=== PATIENT | male | born 1980 | race Caucasian/White ===

== ENCOUNTER → 2018-04-18 | Outpatient (CLI) | payer BC ==
[2018-04-18 16:29] LABS: HCT 45.7 % (39.0-53.0); MCHC 34.9 g/dL (31.0-37.0); MCV 91.7 fL (80.0-100.0); Platelet Count 243 k/uL (150-450); RBC 4.98 m/uL (4.30-5.90); WBC 12.7 k/uL (3.8-10.6)
== END ==
LOC: LABPAT 15:14
PROVIDERS: ATTEND Anesthesiology
DX: Z01.812 Encounter for preprocedural laboratory examination (principal)
CPT/HCPCS: 36415; 85027

== ENCOUNTER 2018-04-19 07:50 | Day surgery (SDC) | payer BC ==
[2018-04-14 14:19] VITALS: BMI 24.2
[~2018-04-19 07:50] MED LIST: DEXAMETHASONE SOD PHOSPHATE 10 MG/ML 1 ML VIAL IV ONE; HEPARIN SODIUM,PORCINE 5,000 UNIT/ML 1 ML VIAL SQ ONE; MIDAZOLAM (PF) 2 MG/2 ML VIAL IV PRN; ONDANSETRON 4 MG/2 ML VIAL IVP ONE; ceFAZolin IN SWFI 2 GM/20 ML SYRINGE IVP ONE; fentaNYL (PF) 50 MCG/ML 2 ML AMP IV PRN
[2018-04-19] MEDS: LACTATED RINGERS 1,000 ML IV SCH (08:49)
[2018-04-19] MEDS: LIDOCAINE 1% 20 ML VIAL (10MG/ML) FOR IV START INTRADERMA PRN ×2 (08:49→08:50)
[2018-04-19] MEDS ORDERED: MIDAZOLAM 2 MG/2 ML VIAL IV ONE (09:07)
[2018-04-19] MEDS ORDERED: fentaNYL (PF) 50 MCG/ML 2 ML AMP IV ONE ×2 (09:07→09:17)
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
--- NOTE | 2018-04-19 09:31 | P.ONQ ---
Anesthesiology Proc Note - PNB - Peripheral Nerve Block Performed Left Transversus Abdominis Single Procedure Start Time: 09:05 Indication: Acute Post-Operative Pain Specifically requested for management of pain by DrAbbey: Guanako Goins Sedation Type: Sedate with meaningful contact maintained Preparation: Sterile Prep Position: Supine Catheter: None Needle Types: Other (see comment) (Pajun) Needle Size: 100mm (4") Needle Gauge: 21 Technique: Ultrasound Injectate: Other (see comment) (rop 0.25% lido 0.5% decadron 4mg 30cc) Adjunct: Epinephrine (see comment for dilution ratio) (1:200,000) Blood Aspirated: No Pain Paresthesia on Injection Noted: No Resistance on Injection: Normal Events: Uneventful and Well Tolerated
[2018-04-19] MEDS ORDERED: BUPIVACAINE-EPI 0.5%-1:200,000 10 ML VIAL SQ ONE ×2 (09:33→09:55)
[2018-04-19] MEDS ORDERED: LIDOCAINE 1% INJ 10MG/ML (20 ML MDV) ONE (09:35)
[2018-04-19] MEDS ORDERED: LIDOCAINE 0.5% (PF) 5 MG/ML (50 ML SDV) ONE (09:35)
[2018-04-19] MEDS ORDERED: DEXAMETHASONE SOD PHOSPHATE 4 MG/ML 1 ML VIAL ONE (09:35)
[2018-04-19] MEDS ORDERED: NEOSTIGMINE 1 MG/ML 10 ML VIAL ONE (09:35)
[2018-04-19] MEDS ORDERED: SUCCINYLCHOLINE CHLORIDE 100 MG/5 ML SYR IV ONE (09:35)
[2018-04-19] MEDS ORDERED: GLYCOPYRROLATE 0.2 MG/ML 2 ML VIAL ONE (09:35)
[2018-04-19] MEDS ORDERED: MIDAZOLAM 2 MG/2 ML VIAL ONE (09:35)
[2018-04-19] MEDS ORDERED: ROCURONIUM BROMIDE 10 MG/ML 10 ML VIAL IV ONE (09:35)
[2018-04-19] MEDS ORDERED: KETOROLAC 30 MG/ML 1 ML VIAL ONE (09:35)
[2018-04-19] MEDS ORDERED: PROPOFOL 10 MG/ML 20 ML VIAL IV ONE (09:35)
[2018-04-19] MEDS ORDERED: fentaNYL (PF) 50 MCG/ML 2 ML AMP ONE (09:35)
[2018-04-19] MEDS ORDERED: ROPIVACAINE 5 MG/ML 30 ML VIAL ONE (09:35)
[2018-04-19 10:32] VITALS: TEMP 98
--- NOTE | 2018-04-19 10:35 | P.OP ---
Date of Procedure: 04/19/18 Preoperative Diagnosis: Left inguinal hernia Postoperative Diagnosis: Left inguinal hernia Procedure(s) Performed: Laparoscopic robotic-assisted repair of left inguinal hernia Excision of cord lipoma Anesthesia: LEONOR Surgeon: Guanako Goins Estimated Blood Loss (ml): 5 Pathology: other (Left cord lipoma) Condition: stable Disposition: PACU Description of Procedure: The patient's placed on the operating table in the supine position. The patient received general anesthesia. The patient's abdomen was prepped and draped in usual sterile fashion. The skin was anesthetized 1% local Xylocaine at the incision sites. Using an 11 blade a skin incision was made at the umbilicus. The fascia was grasped with a Anthony and then the peritoneal cavity was entered with the Veress needle. Position of the Veress needle was confirmed with a positive drop test. After adequate insufflation a 5 mm trocar was placed into the peritoneal cavity. The Laparoscope was placed the peritoneal cavity. And a robotic 8 mm trocar was placed in the right lateral position and then another 8 mm robotic trochars placed in the left lateral position. The original 5 mm trocar was exchanged for a 12 mm trocar. The patient was placed in reverse Trendelenburg and then the patient was docked to the robot. Next the peritoneum over top of the hernia was incised and then using blunt and sharp dissection and electrocautery the hernia sac was dissected free from the floor of the inguinal canal. The cord lipoma was dissected free. The hernia sac was completely reduced into the peritoneal cavity. And then using the Pro supervisor rod placing mesh the hernia was repaired. The peritoneum was then sutured with 20V lock suture. The patient was then undocked the robot. The needle was withdrawn from the peritoneal cavity. The cord lipoma was retrieved. The umbilical trocar site was closed with 0 Ethibond suture. The skin was closed interrupted 3-0 Monocryl suture. Dermabond dressing was applied. Patient was sent to recovery in stable condition.
[2018-04-19 10:50] VITALS: RESP 16
[2018-04-19] MEDS ORDERED: HYDROcodone/APAP 7.5-325MG 1 EACH TAB PO ONE (11:24)
[2018-04-19 11:52] VITALS: BP 117/65; PULSE 85
== END 2018-04-19 12:39 | disposition home or self-care (01) ==
LOC: OR 07:50
PROVIDERS: ATTEND Surgery
DX: K40.90 Unilateral inguinal hernia, without obstruction or gangrene, not specified as recurrent (principal); D17.6 Benign lipomatous neoplasm of spermatic cord; M19.90 Unspecified osteoarthritis, unspecified site; Z87.442 Personal history of urinary calculi; F17.210 Nicotine dependence, cigarettes, uncomplicated; K21.9 Gastro-esophageal reflux disease without esophagitis
CPT/HCPCS: 49650; 64486; 88304; C1781; J2250; J1644; J1100 ×2; J2710; J2405; J2001 ×2; J3010; J1885; J2795; J0330; J2704; J0690; 64488